=== PATIENT | female | born 1980 | race Caucasian/White ===

== ENCOUNTER 2021-09-16 09:14 | Emergency (ER) | payer OTHER ==
[~2021-09-16] VITALS: Ht 157.5 cm; Wt 72.6 kg
[~2021-09-16 09:14] MED LIST: CIPRO500 MG/5 M PO; MAALOX ADVANCE355 ML PO; OMEPRAZOLE20 MG; PEPCID20 MG PO; PROTONIX20 MG PO
== END 2021-09-16 11:11 | disposition home or self-care (01) ==
LOC: ER 09:14
DX: H66.92 Otitis media, unspecified, left ear (principal)